=== PATIENT | male | born 1965 | race Caucasian/White ===

== ENCOUNTER 2018-12-15 14:30 | Emergency (ER) | payer OTHER, SELFPAY ==
[~2018-12-15] VITALS: Ht 182.9 cm; Wt 72.7 kg
[~2018-12-15 14:30] MED LIST: LORA-269 PO; LOSA1TAB41 PO; METO100T7 PO
[2018-12-15] MEDS ORDERED: normal saline 1000ML IV soln IVB ONE (14:55)
[2018-12-15] MEDS ORDERED: ondansetron/PF 4mg/2ml inj IV ONE (14:55)
[2018-12-15] MEDS ORDERED: LORazepam 2 mg/ml vial IV ONE (14:55)
[2018-12-15] MEDS ORDERED: pantoprazole 40 MG vial IV ONE (14:55)
[2018-12-15 15:08] LABS: BASOPHILS % (AUTO) 0.5 % (0-1); EOSINOPHILS # (AUTO) 0.1 X10'3 (0-0.9); HEMATOCRIT 42.6 % (42.0-52.0); HEMOGLOBIN 15.2 g/dl (14.0-17.9); LYMPHOCYTES # (AUTO) 1.2 X10'3 (1.1-4.8); MEAN CORPUSCULAR HEMOGLOBIN 35.3 PG (27.0-31.0); MEAN CORPUSCULAR HGB CONC 35.7 g/dL (33.0-36.5); MEAN CORPUSCULAR VOLUME 98.9 FL (78-98); MEAN PLATELET VOLUME 6.4 FL (7.4-10.4); MONOCYTES # (AUTO) 0.5 X10'3 (0-0.9); MONOCYTES % (AUTO) 7.3 % (2-12); NEUTROPHILS # (AUTO) 4.5 X10'3 (1.8-7.7); NEUTROPHILS % (AUTO) 72.2 % (42-75); PLATELET COUNT 205 X10'3 (140-440); RED CELL DISTRIBUTION WIDTH 12.9 % (11.5-14.5); WHITE BLOOD COUNT 6.2 X10'3 (4.5-11.0)
[2018-12-15 15:12] LABS: CLARITY,URINE CLEAR (Clear); COLOR,URINE YELLOW (Yellow); GLUCOSE, URINE NEGATIVE (Neg); KETONES,URINE NEGATIVE (Neg); LEUKOCYTE ESTERASE ,URINE NEGATIVE (Neg); NITRITES, URINE NEGATIVE (Neg); OCCULT BLOOD,URINE NEGATIVE (Neg); PH,URINE 6.5 (4.8-8.0); PROTEIN,URINE TRACE mg/dl (Neg); UA COLLECTION TYPE CLN CATCH MIDSTREAM; UROBILINOGEN,URINE 0.2 E.U/dL (0.2-1.0)
[2018-12-15 15:20] LABS: BACTERIA,URINE FEW /HPF (Neg); HYALINE CASTS 0-3 /LPF (NEGATIVE); RBC,URINE 0-2 /HPF (0-2); SQUAMOUS EPITHELIAL CELL,UR FEW /LPF (FEW); WBC,URINE 0-4 /HPF (0-4)
[2018-12-15 15:20] LABS: ALANINE AMINOTRANSFERASE 50 U/L (12-78); ALBUMIN 3.5 G/DL (3.4-5.0); ALBUMIN/GLOBULIN RATIO 0.9 (1.1-1.5); ALKALINE PHOSPHATASE 150 IU/L (46-116); ANION GAP 11 (8-16); ASPARTATE AMINO TRANSFERASE 34 U/L (10-37); BILIRUBIN,TOTAL 1.5 MG/DL (0.1-1.0); BLOOD UREA NITROGEN 12 MG/DL (7-18); BUN/CREATININE RATIO 11.2 (5.4-32.0); CALCIUM 8.8 MG/DL (8.5-10.1); CHLORIDE 96 MMOL/L (99-107); CREATININE 1.07 MG/DL (0.60-1.10); GLUCOSE 109 MG/DL (70-104); POTASSIUM 3.3 MMOL/L (3.5-5.1); SODIUM 130 MMOL/L (135-145); TOTAL CARBON DIOXIDE 22.9 MMOL/L (24-32); TOTAL PROTEIN 7.3 G/DL (6.4-8.2); eGFR 73 ML/MIN
[2018-12-15 15:26] VITALS: BP 186/120
[2018-12-15] MEDS ORDERED: thiamine inj. 100 MG, MVI, adult No.4 with vit. K 10 ML in dextrose 5% water 500ml 489 ML IV STA ×3 (15:46)
[2018-12-15] MEDS ORDERED: proCHLORperazine 10 MG/2 ml inj IV ONE (15:50)
[2018-12-15] MEDS ORDERED: SUCR1TAB34 PO (16:23)
[2018-12-15] MEDS ORDERED: PANT40TA4 PO (16:23)
[2018-12-15] MEDS ORDERED: ONDA8TAB6 PO (16:23)
== END 2018-12-15 18:12 | disposition home or self-care (01) ==
LOC: ER 14:31
DX: K64.4 Residual hemorrhoidal skin tags (principal); F10.10 Alcohol abuse, uncomplicated; R11.2 Nausea with vomiting, unspecified; I10 Essential (primary) hypertension; Z87.442 Personal history of urinary calculi; Z79.899 Other long term (current) drug therapy; Y90.9 Presence of alcohol in blood, level not specified
CPT/HCPCS: 36415; 80053; 81001; 85025; 85610; 96361; 96365; 96366; 96375; 99283; C9113; J0780; J2060; J2405; J3411; J7030; J7060

== ENCOUNTER 2019-04-29 14:57 | Emergency (ER) | payer OTHER ==
[~2019-04-29] VITALS: Ht 182.9 cm; Wt 81.8 kg
[~2019-04-29 14:57] MED LIST changes: +ONDA8TAB6 PO; +PANT40TA4 PO; +SUCR1TAB34 PO
[2019-04-29] MEDS ORDERED: ondansetron/PF 4mg/2ml inj IV ONE (15:20)
[2019-04-29] MEDS ORDERED: normal saline 1000ML IV soln IVB ONE ×2 (15:20→17:20)
[2019-04-29 15:38] LABS: EOSINOPHILS # (AUTO) 0.1 X10'3 (0-0.9); EOSINOPHILS % (AUTO) 1.2 % (0-6); LYMPHOCYTES # (AUTO) 1.4 X10'3 (1.1-4.8); MONOCYTES # (AUTO) 0.8 X10'3 (0-0.9)
[2019-04-29 15:40] LABS: BASOPHILS % (AUTO) 0.4 % (0-1); HEMATOCRIT 46.5 % (42.0-52.0); HEMOGLOBIN 16.2 g/dl (14.0-17.9); LYMPHOCYTES % (AUTO) 19.1 % (21-51); MEAN CORPUSCULAR HEMOGLOBIN 36.2 PG (27.0-31.0); MEAN CORPUSCULAR HGB CONC 34.8 g/dL (33.0-36.5); MEAN CORPUSCULAR VOLUME 103.9 FL (78-98); MEAN PLATELET VOLUME 6.1 FL (7.4-10.4); MONOCYTES % (AUTO) 10.9 % (2-12); NEUTROPHILS # (AUTO) 4.9 X10'3 (1.8-7.7); NEUTROPHILS % (AUTO) 68.4 % (42-75); PLATELET COUNT 202 X10'3 (140-440); RED BLOOD COUNT 4.48 X10'6 (4.70-6.10); RED CELL DISTRIBUTION WIDTH 14.3 % (11.5-14.5); WHITE BLOOD COUNT 7.2 X10'3 (4.5-11.0)
[2019-04-29 15:51] LABS: ALANINE AMINOTRANSFERASE 22 U/L (12-78); ALBUMIN 3.5 G/DL (3.4-5.0); ALBUMIN/GLOBULIN RATIO 0.9 (1.1-1.5); ALKALINE PHOSPHATASE 187 IU/L (46-116); ANION GAP 8 (8-16); ASPARTATE AMINO TRANSFERASE 20 U/L (10-37); BILIRUBIN,TOTAL 2.2 MG/DL (0.1-1.0); BLOOD UREA NITROGEN 4 MG/DL (7-18); BUN/CREATININE RATIO 3.9 (5.4-32.0); CHLORIDE 92 MMOL/L (99-107); CREATININE 1.02 MG/DL (0.60-1.10); GLUCOSE 100 MG/DL (70-104); LIPASE < 50 U/L (73-393); POTASSIUM 4.2 MMOL/L (3.5-5.1); SODIUM 128 MMOL/L (135-145); TOTAL CARBON DIOXIDE 28.5 MMOL/L (24-32); TOTAL PROTEIN 7.6 G/DL (6.4-8.2); eGFR 76 ML/MIN
[2019-04-29 16:02] LABS: PLATELET ESTIMATE NORMAL
[2019-04-29 16:08] LABS: CLARITY,URINE CLEAR (Clear); COLOR,URINE YELLOW (Yellow); GLUCOSE, URINE NEGATIVE (Neg); KETONES,URINE NEGATIVE (Neg); LEUKOCYTE ESTERASE ,URINE NEGATIVE (Neg); NITRITES, URINE NEGATIVE (Neg); OCCULT BLOOD,URINE NEGATIVE (Neg); PROTEIN,URINE TRACE mg/dl (Neg)
[2019-04-29 16:09] LABS: UA COLLECTION TYPE CLN CATCH MIDSTREAM
[2019-04-29 16:15] LABS: BACTERIA,URINE FEW /HPF (Neg); HYALINE CASTS 0-3 /LPF (NEGATIVE); MUCUS STRANDS FEW /LPF (Neg); RBC,URINE 0-2 /HPF (0-2); SQUAMOUS EPITHELIAL CELL,UR FEW /LPF (FEW); WBC CLUMPS,URINE FEW /HPF (NEGATIVE); WBC,URINE 0-4 /HPF (0-4)
[2019-04-29] MEDS: morphine 4 MG/ML inj SYRINge IV PRN ×2 (16:23→18:53)
--- NOTE | 2019-04-29 16:29 | NUR ---
Pt medicated as ordered for pain and nausea. IVF started. Pt transported to CT scan.
[2019-04-29] MEDS ORDERED: CefTRIAXone/D5W-Rocephin 1gm 50 ML IV ONE (17:20)
[2019-04-29] MEDS ORDERED: azithromycin 250mg tablet PO ONE (17:20)
[2019-04-29] MEDS ORDERED: morphine 4 MG/ML inj SYRINge IV ONE (17:20)
[2019-04-29] MEDS ORDERED: ALBU18HF2 INH (18:20)
[2019-04-29] MEDS ORDERED: AZIT250T83 PO (18:20)
[2019-04-29 19:20] VITALS: BP 164/110
== END 2019-04-29 19:28 | disposition home or self-care (01) ==
LOC: ER 14:58
DX: J18.9 Pneumonia, unspecified organism (principal); R10.814 Left lower quadrant abdominal tenderness; R11.2 Nausea with vomiting, unspecified; R00.0 Tachycardia, unspecified; I11.0 Hypertensive heart disease with heart failure; I50.9 Heart failure, unspecified; Z87.442 Personal history of urinary calculi; Z87.891 Personal history of nicotine dependence; Z79.2 Long term (current) use of antibiotics; Z79.899 Other long term (current) drug therapy
CPT/HCPCS: 36415; 71046; 74176; 80053; 81001; 83690; 84484; 85025; 96361; 96365; 96375; 96376; 99284; J0696; J2270; J2405; J7030

== ENCOUNTER 2019-09-03 09:58 | Inpatient (IN) | payer OTHER ==
[~2019-09-03] VITALS: Ht 182.9 cm; Wt 114.0 kg
[~2019-09-03 09:58] MED LIST changes: +ALBU18HF2 INH
[2019-09-03 10:45] LABS: BASOPHILS % (AUTO) 0.6 % (0-1); EOSINOPHILS % (AUTO) 0.6 % (0-6); HEMATOCRIT 42.7 % (42.0-52.0); HEMOGLOBIN 15.1 g/dl (14.0-17.9); LYMPHOCYTES # (AUTO) 1.4 X10'3 (1.1-4.8); LYMPHOCYTES % (AUTO) 16.6 % (21-51); MEAN CORPUSCULAR HEMOGLOBIN 38.9 PG (27.0-31.0); MEAN CORPUSCULAR HGB CONC 35.4 g/dL (33.0-36.5); MEAN CORPUSCULAR VOLUME 109.8 FL (78-98); MEAN PLATELET VOLUME 6.8 FL (7.4-10.4); MONOCYTES # (AUTO) 0.6 X10'3 (0-0.9); MONOCYTES % (AUTO) 7.5 % (2-12); NEUTROPHILS # (AUTO) 6.3 X10'3 (1.8-7.7); NEUTROPHILS % (AUTO) 74.7 % (42-75); PLATELET COUNT 203 X10'3 (140-440); RED BLOOD COUNT 3.89 X10'6 (4.70-6.10); RED CELL DISTRIBUTION WIDTH 15.1 % (11.5-14.5); WHITE BLOOD COUNT 8.5 X10'3 (4.5-11.0)
[2019-09-03] MEDS ORDERED: CefTRIAXone/D5W-Rocephin 1gm 50 ML IV ONE (10:50)
[2019-09-03] MEDS ORDERED: ipratropium 0.5 MG/2.5ML nebule IH ONE (10:50)
[2019-09-03] MEDS ORDERED: acetaminophen w/codeine (30MG) #3 tablet PO ONE (10:55)
[2019-09-03] MEDS ORDERED: iohexol 350MG/ML 100ml bottle IV ONE (11:02)
[2019-09-03 11:15] LABS: BILIRUBIN,TOTAL 3.3 MG/DL (0.1-1.0)
--- NOTE | 2019-09-03 11:15 | NUR ---
Pt out to CT
[2019-09-03 11:16] LABS: ALANINE AMINOTRANSFERASE 16 U/L (12-78); ALBUMIN 3.7 G/DL (3.4-5.0); ALBUMIN/GLOBULIN RATIO 0.8 (1.1-1.5); ALKALINE PHOSPHATASE 157 IU/L (46-116); ANION GAP 15 (8-16); ASPARTATE AMINO TRANSFERASE 20 U/L (10-37); BLOOD UREA NITROGEN 15 MG/DL (7-18); BUN/CREATININE RATIO 9.6 (5.4-32.0); CALCIUM 8.7 MG/DL (8.5-10.1); CHLORIDE 102 MMOL/L (99-107); CREATININE 1.57 MG/DL (0.60-1.10); GLUCOSE 124 MG/DL (70-104); POTASSIUM 3.3 MMOL/L (3.5-5.1); SODIUM 142 MMOL/L (135-145); TOTAL CARBON DIOXIDE 25.1 MMOL/L (24-32); TOTAL PROTEIN 8.1 G/DL (6.4-8.2); eGFR 46 ML/MIN
[2019-09-03] MEDS ORDERED: normal saline 1000ml 1,000 ML IV ONE (11:22)
[2019-09-03] MEDS ORDERED: normal saline 1000ML IV soln IVB ONE (11:25)
[2019-09-03] MEDS ORDERED: heparin 25,000 UNIT/250ml bag 250 ML IV SCH ×3 (11:39→12:36)
[2019-09-03] MEDS ORDERED: heparin 10,000 units/1 ML INJ IV ONE ×3 (11:40→12:25)
[2019-09-03] MEDS ORDERED: ipratropium 0.5 MG/2.5ML nebule ONE (11:44)
--- NOTE | 2019-09-03 12:23 | NUR ---
STOPPED BRONCHODILATOR PER DR CALDERON PT DID NOT NEED BRONCHODILATION
[2019-09-03] MEDS ORDERED: heparin 10,000 units/1 ML INJ IV PRN ×2 (12:25→12:40)
[2019-09-03] MEDS ORDERED: PANT-47 PO (12:29)
[2019-09-03] MEDS ORDERED: LOSA1TAB41 PO (12:29)
[2019-09-03] MEDS ORDERED: ALBU18HF2 PO (12:29)
[2019-09-03] MEDS ORDERED: SUCR1TAB PO (12:29)
[2019-09-03] MEDS ORDERED: METO-384 PO (12:29)
[2019-09-03] MEDS ORDERED: potassium Cl 20 mEq SR tablet PO PRN (12:40)
[2019-09-03] MEDS ORDERED: potassium CL 10mEq/100ml bag 100 ML IV PRN ×2 (12:40)
[2019-09-03] MEDS ORDERED: mag hydrox/Alum hydrox/simeth 30ml oral suspension PO PRN (12:40)
[2019-09-03] MEDS ORDERED: acetaminophen 325mg tablet PO PRN ×2 (12:40)
[2019-09-03] MEDS ORDERED: metoclopramide 5 mg/ml inj IV PRN (12:40)
[2019-09-03] MEDS ORDERED: magnesium hydroxide 30ml (MOM) UD suspension PO PRN (12:40)
[2019-09-03] MEDS ORDERED: magnesium 2GM in 50ml NS 50 ML IV PRN (12:40)
[2019-09-03] MEDS ORDERED: ondansetron/PF 4mg/2ml inj IV PRN (12:40)
[2019-09-03] MEDS ORDERED: magnesium 4gm in 100ml NS 100 ML IV PRN (12:40)
[2019-09-03] MEDS ORDERED: albuterol 2.5 MG/3 ML nebule NEB PRN (13:00)
[2019-09-03] MEDS: sucralfate 1 gm tablet PO SCH ×2 (14:00→19:51)
--- NOTE | 2019-09-03 14:35 | NUR ---
Patient in room [facility]. I have received report from Wero RN from ED and had the opportunity to ask questions and assume patient care. Pt was hypertensive when he arrived 173/120, RR18, O2 100% RA, T97.8 Charge nurse, Chely, notified since HTN was no treated at ED. Dr Church was also notified of the HTN and Dr advised to give Losartan & Microzide. Pt arrived with Heparin drip running at 2052 units per hr. Noted: Heparin bag was not scanned at the ED. NOC nurse aware of the heparin not scanned/noted. Pt's BP after meds (45min) 144/84.
[2019-09-03 15:26] VITALS: BP 173/120
[2019-09-03] MEDS ORDERED: HYDROchlorothiazide 12.5mg capsule PO ONE (16:35)
[2019-09-03] MEDS ORDERED: losartan 50mg tablet PO ONE (16:35)
[2019-09-03] MEDS: HYDROcodone/acetaminophen 5mg/325mg tablet PO PRN (16:52)
--- NOTE | 2019-09-03 18:30 | NUR ---
Problems reprioritized. Patient report given, questions answered & plan of care reviewed with Holly Kamara
--- NOTE | 2019-09-03 19:30 | NUR ---
@1845 Received report from Shantell LO. Will assume patient care. @1850 Patient currently heparin gtt running at 20.52 ml/hr. Received critical call from lab DVT PTT greater than 139. Heparin immediately stopped. And verified with lab that site was drawn in the correct on arm. Lab drawn in the correct arm. @1915 Dr. Trujillo notified of the critical results. No new orders. Continue with protocol.
[2019-09-03 20:00] VITALS: BP 152/89
[2019-09-03] MEDS: K and/or MAG REPLACEMENT MC SCH (20:00)
[2019-09-03] MEDS: potassium Cl 20 mEq SR tablet PO PRN (20:01)
--- NOTE | 2019-09-03 20:19 | NUR ---
Pharmacist notified and called to verified patients previous heparin rate. Patient heparin rate should be at 20ml/hr. Will continue with orders and adjust rate accordingly to protocol.
[2019-09-03] MEDS: heparin 25,000 UNIT/250ml bag 250 ML IV SCH (20:57)
[2019-09-03] MEDS: HYDROcodone/acetaminophen 10/325mg tab PO PRN (21:00)
[2019-09-03] MEDS ORDERED: temazepam 15mg capsule PO PRN (21:00)
--- NOTE | 2019-09-03 21:02 | NUR ---
@2049 HEPARIN RESTARTED PER PROTOCOL. DECREASE RATE 3UNIT/KG/HOUR. PREVIOUS RATE WAS AT 20ML/HR. RATE RESTARTED AT 17ML/HR. WILL RECHECK PTT IN 2HRS ACCORDING TO PROTOCOL.
--- NOTE | 2019-09-03 23:49 | NUR ---
PTT came back at 58 therapeutic. No change. Next PTT drawn is @0450.
[2019-09-04] VITALS (8 sets, daily range): BP systolic 140–182; BP diastolic 83–122
[2019-09-04] MEDS: sucralfate 1 gm tablet PO SCH ×4 (02:00→19:34)
[2019-09-04] MEDS ORDERED: morphine 2 MG/ML inj. syringe IV ONE (02:30)
[2019-09-04] MEDS: heparin 25,000 UNIT/250ml bag 250 ML IV SCH ×3 (04:13→21:34)
[2019-09-04] MEDS: HYDROcodone/acetaminophen 10/325mg tab PO PRN ×2 (04:13→19:35)
--- NOTE | 2019-09-04 05:00 | NUR ---
@0210 patient woke up from his sleep in panic and coughing, gasping for air and could not catch his breath. VS BP-161/117, HR-115, RR-38 98% RA, pain 5/[address] Trujillo notifed and arrived on floor. Order x1dose 2mg morphine IV. Within 10mins after morphine administer patient felt camler and breathing more slowly. BP-140/92, HR-103, RR-26, 97%RA, pain 5/10, 98.1 Temp. Will continue with care.
[2019-09-04 05:50] LABS: BASOPHILS % (AUTO) 0.4 % (0-1); EOSINOPHILS # (AUTO) 0.2 X10'3 (0-0.9); EOSINOPHILS % (AUTO) 3.2 % (0-6); HEMATOCRIT 35.9 % (42.0-52.0); HEMOGLOBIN 12.6 g/dl (14.0-17.9); LYMPHOCYTES # (AUTO) 0.8 X10'3 (1.1-4.8); LYMPHOCYTES % (AUTO) 11.6 % (21-51); MEAN CORPUSCULAR HEMOGLOBIN 38.5 PG (27.0-31.0); MEAN CORPUSCULAR HGB CONC 35.2 g/dL (33.0-36.5); MEAN CORPUSCULAR VOLUME 109.4 FL (78-98); MEAN PLATELET VOLUME 7.2 FL (7.4-10.4); MONOCYTES # (AUTO) 0.5 X10'3 (0-0.9); NEUTROPHILS # (AUTO) 5.4 X10'3 (1.8-7.7); NEUTROPHILS % (AUTO) 77.8 % (42-75); PLATELET COUNT 170 X10'3 (140-440); RED BLOOD COUNT 3.28 X10'6 (4.70-6.10); RED CELL DISTRIBUTION WIDTH 14.9 % (11.5-14.5)
[2019-09-04 06:08] LABS: ALANINE AMINOTRANSFERASE 13 U/L (12-78); ALBUMIN 2.8 G/DL (3.4-5.0); ALBUMIN/GLOBULIN RATIO 0.8 (1.1-1.5); ALKALINE PHOSPHATASE 118 IU/L (46-116); ANION GAP 14 (8-16); ASPARTATE AMINO TRANSFERASE 15 U/L (10-37); BILIRUBIN,TOTAL 2.7 MG/DL (0.1-1.0); BLOOD UREA NITROGEN 17 MG/DL (7-18); BUN/CREATININE RATIO 12.8 (5.4-32.0); CALCIUM 7.9 MG/DL (8.5-10.1); CHLORIDE 103 MMOL/L (99-107); CHOL/HDL RATIO 3.6 (0.00-4.99); CHOLESTEROL 128 MG/DL (0-200); CREATININE 1.33 MG/DL (0.60-1.10); GLUCOSE 133 MG/DL (70-104); HDL CHOLESTEROL 36 MG/DL (35-60); LDL CHOLESTEROL 82 MG/DL (50-100); MAGNESIUM 1.2 MG/DL (1.5-2.4); POTASSIUM 3.4 MMOL/L (3.5-5.1); SODIUM 139 MMOL/L (135-145); TOTAL CARBON DIOXIDE 21.8 MMOL/L (24-32); TOTAL PROTEIN 6.5 G/DL (6.4-8.2); TRIGLYCERIDES 113 MG/DL (20-135); eGFR 56 ML/MIN
[2019-09-04] MEDS: losartan 50mg tablet PO SCH (07:17)
[2019-09-04] MEDS: HYDROchlorothiazide 12.5mg capsule PO SCH (07:18)
[2019-09-04] MEDS: pantoprazole 40mg Tablet.DR PO SCH (07:18)
[2019-09-04] MEDS: metoprolol succinate 25mg (24-HOUR) SR. Tablet PO SCH (07:19)
[2019-09-04] MEDS: K and/or MAG REPLACEMENT MC SCH ×2 (08:00→21:35)
[2019-09-04] MEDS: potassium Cl 20 mEq SR tablet PO PRN ×2 (10:44→19:35)
[2019-09-04] MEDS: magnesium Cl slow-release 64mg tablet PO PRN ×2 (10:45→21:38)
[2019-09-04] MEDS: predniSONE 20 mg tablet PO SCH (10:45)
[2019-09-04] MEDS: HYDROcodone/acetaminophen 5mg/325mg tablet PO PRN (14:24)
--- NOTE | 2019-09-04 18:00 | NUR ---
Problems reprioritized. Patient report given, questions answered & plan of care reviewed with Holly LO.
[2019-09-05] VITALS: BP 137/88
[2019-09-05] MEDS: sucralfate 1 gm tablet PO SCH ×3 (02:00→13:31)
[2019-09-05 06:40] LABS: BASOPHILS % (AUTO) 0.4 % (0-1); EOSINOPHILS # (AUTO) 0.1 X10'3 (0-0.9); HEMATOCRIT 36.4 % (42.0-52.0); LYMPHOCYTES # (AUTO) 1.5 X10'3 (1.1-4.8); LYMPHOCYTES % (AUTO) 20.7 % (21-51); MEAN CORPUSCULAR HEMOGLOBIN 38.9 PG (27.0-31.0); MEAN CORPUSCULAR HGB CONC 35.7 g/dL (33.0-36.5); MEAN CORPUSCULAR VOLUME 108.8 FL (78-98); MEAN PLATELET VOLUME 6.3 FL (7.4-10.4); MONOCYTES # (AUTO) 0.5 X10'3 (0-0.9); MONOCYTES % (AUTO) 6.5 % (2-12); NEUTROPHILS # (AUTO) 5.3 X10'3 (1.8-7.7); NEUTROPHILS % (AUTO) 71.4 % (42-75); PLATELET COUNT 208 X10'3 (140-440); RED BLOOD COUNT 3.35 X10'6 (4.70-6.10); RED CELL DISTRIBUTION WIDTH 14.3 % (11.5-14.5); WHITE BLOOD COUNT 7.5 X10'3 (4.5-11.0)
--- NOTE | 2019-09-05 06:48 | NUR ---
Patient in room [facility]. I have received report from Holly LO and had the opportunity to ask questions and assume patient care.
[2019-09-05 07:00] VITALS: BP 149/98
[2019-09-05] MEDS: heparin 25,000 UNIT/250ml bag 250 ML IV SCH (07:03)
[2019-09-05 07:14] LABS: ALANINE AMINOTRANSFERASE 14 U/L (12-78); ALBUMIN 2.9 G/DL (3.4-5.0); ALBUMIN/GLOBULIN RATIO 0.7 (1.1-1.5); ALKALINE PHOSPHATASE 112 IU/L (46-116); ANION GAP 10 (8-16); ASPARTATE AMINO TRANSFERASE 13 U/L (10-37); BILIRUBIN,TOTAL 1.6 MG/DL (0.1-1.0); BLOOD UREA NITROGEN 16 MG/DL (7-18); BUN/CREATININE RATIO 12.3 (5.4-32.0); CALCIUM 8.8 MG/DL (8.5-10.1); CHLORIDE 102 MMOL/L (99-107); GLUCOSE 99 MG/DL (70-104); MAGNESIUM 1.6 MG/DL (1.5-2.4); POTASSIUM 3.8 MMOL/L (3.5-5.1); SODIUM 136 MMOL/L (135-145); eGFR 58 ML/MIN
[2019-09-05] MEDS: K and/or MAG REPLACEMENT MC SCH (08:00)
[2019-09-05] MEDS: HYDROcodone/acetaminophen 10/325mg tab PO PRN ×2 (08:36→13:32)
[2019-09-05] MEDS: pantoprazole 40mg Tablet.DR PO SCH (08:37)
[2019-09-05] MEDS: predniSONE 20 mg tablet PO SCH (08:37)
[2019-09-05] MEDS: metoprolol succinate 25mg (24-HOUR) SR. Tablet PO SCH (08:37)
[2019-09-05] MEDS: HYDROchlorothiazide 12.5mg capsule PO SCH (08:37)
[2019-09-05] MEDS: losartan 50mg tablet PO SCH (08:38)
[2019-09-05 11:00] VITALS: BP 175/116
[2019-09-05 12:30] VITALS: BP 170/104
[2019-09-05] MEDS ORDERED: apixaban 5mg tablet PO ONE (12:30)
--- NOTE | 2019-09-05 12:30 | NUR ---
Patients blood pressure was taken manually by Dr Madden at bedside he will make adjustments to patients Blood pressure medications
[2019-09-05] MEDS ORDERED: PRED20TA PO (12:32)
[2019-09-05] MEDS ORDERED: AMLO5TAB4 PO (12:32)
[2019-09-05] MEDS ORDERED: HYDR-4353 PO (12:32)
[2019-09-05] MEDS ORDERED: APIX5TAB3 PO ×2 (12:32)
--- NOTE | 2019-09-05 14:34 | NUR ---
Patient discharged home with . All belongings taken from room. IV removed. Narcotic prescription given to patient, other new medications e-scripted to preferred pharmacy. Work excuse form given to patient. Discharge instructions given and reviewed with patient and , all questions answered.
[2019-09-07 05:12] LABS: ANTITHROMBIN ACTIVITY 112 % (75-135); ANTITHROMBIN ANTIGEN 81 % (72-124)
[2019-09-07 07:09] LABS: PROTEIN S, FREE 207 % (57-157); PROTEIN S, TOTAL 130 % (60-150)
== END 2019-09-05 14:00 | disposition home or self-care (01) | DRG 299 ==
LOC: ER 09:58 → ED HOLD 12:49 → SUR 3N 14:54
PROVIDERS: ADMIT Family Medicine; ATTEND Family Medicine
DX: I82.492 Acute embolism and thrombosis of other specified deep vein of left lower extremity (principal); I26.99 Other pulmonary embolism without acute cor pulmonale; N17.9 Acute kidney failure, unspecified; I82.402 Acute embolism and thrombosis of unspecified deep veins of left lower extremity; M10.9 Gout, unspecified; E87.6 Hypokalemia; N18.9 Chronic kidney disease, unspecified; I12.9 Hypertensive chronic kidney disease with stage 1 through stage 4 chronic kidney disease, or unspecified chronic kidney disease; M25.572 Pain in left ankle and joints of left foot; J44.9 Chronic obstructive pulmonary disease, unspecified; E83.42 Hypomagnesemia; D64.9 Anemia, unspecified; Z87.11 Personal history of peptic ulcer disease; Z87.442 Personal history of urinary calculi; Z87.891 Personal history of nicotine dependence; Z79.899 Other long term (current) drug therapy; Z87.01 Personal history of pneumonia (recurrent); Z87.19 Personal history of other diseases of the digestive system
CPT/HCPCS: 36415; 71046; 71275; 73600; 73630; 80053; 80061; 81479; 83605; 83735; 83891; 83894; 83898; 84550; 85025; 85240; 85300; 85301; 85303; 85305; 85306; 85730; 87040; 87081; 93005; 93306; 93971; 94760; 96365; 96375; 99285; G0378; J0696; J1644; J2270; J7030; J7512; Q9967

== ENCOUNTER 2019-09-15 08:34 | Emergency (ER) | payer OTHER ==
[~2019-09-15] VITALS: Ht 182.9 cm; Wt 90.2 kg
[~2019-09-15 08:34] MED LIST changes: -ALBU18HF2 INH; +ALBU18HF2 PO; +AMLO5TAB4 PO; +APIX5TAB3 PO; +HYDR-4353 PO; -LORA-269 PO; +METO-384 PO; -METO100T7 PO; -ONDA8TAB6 PO; +PANT-47 PO; -PANT40TA4 PO; +PRED20TA PO; +SUCR1TAB PO; -SUCR1TAB34 PO
[2019-09-15] MEDS ORDERED: CefTRIAXone 2gm/D5W 50ml 50 ML IV ONE (09:15)
[2019-09-15] MEDS ORDERED: normal saline 1000ML IV soln IV ONE (09:15)
[2019-09-15 09:52] LABS: BASOPHILS # (AUTO) 0.1 X10'3 (0-0.2); BASOPHILS % (AUTO) 1.1 % (0-1); EOSINOPHILS # (AUTO) 0.2 X10'3 (0-0.9); EOSINOPHILS % (AUTO) 1.9 % (0-6); HEMATOCRIT 36.8 % (42.0-52.0); HEMOGLOBIN 13.2 g/dl (14.0-17.9); LYMPHOCYTES # (AUTO) 0.9 X10'3 (1.1-4.8); MEAN CORPUSCULAR HEMOGLOBIN 38.3 PG (27.0-31.0); MEAN CORPUSCULAR HGB CONC 35.8 g/dL (33.0-36.5); MONOCYTES # (AUTO) 0.6 X10'3 (0-0.9); MONOCYTES % (AUTO) 6.5 % (2-12); NEUTROPHILS # (AUTO) 7.6 X10'3 (1.8-7.7); NEUTROPHILS % (AUTO) 80.5 % (42-75); PLATELET COUNT 452 X10'3 (140-440); RED BLOOD COUNT 3.44 X10'6 (4.70-6.10); WHITE BLOOD COUNT 9.5 X10'3 (4.5-11.0)
[2019-09-15 10:06] VITALS: BP 115/76
[2019-09-15 10:08] LABS: ALANINE AMINOTRANSFERASE 27 U/L (12-78); ALBUMIN 3.1 G/DL (3.4-5.0); ALBUMIN/GLOBULIN RATIO 0.7 (1.1-1.5); ALKALINE PHOSPHATASE 188 IU/L (46-116); ANION GAP 4 (8-16); ASPARTATE AMINO TRANSFERASE 27 U/L (10-37); BILIRUBIN,TOTAL 1.1 MG/DL (0.1-1.0); BLOOD UREA NITROGEN 18 MG/DL (7-18); BUN/CREATININE RATIO 11.9 (5.4-32.0); CHLORIDE 93 MMOL/L (99-107); CREATININE 1.51 MG/DL (0.60-1.10); GLUCOSE 92 MG/DL (70-104); POTASSIUM 4.1 MMOL/L (3.5-5.1); SODIUM 129 MMOL/L (135-145); TOTAL CARBON DIOXIDE 32.1 MMOL/L (24-32); TOTAL PROTEIN 7.4 G/DL (6.4-8.2); eGFR 49 ML/MIN
[2019-09-15] MEDS ORDERED: CEPH250T PO (10:21)
== END 2019-09-15 11:54 | disposition home or self-care (01) ==
LOC: ER 08:34
DX: L03.115 Cellulitis of right lower limb (principal); E86.0 Dehydration; E87.1 Hypo-osmolality and hyponatremia; R06.02 Shortness of breath; Z87.01 Personal history of pneumonia (recurrent); N28.9 Disorder of kidney and ureter, unspecified; I10 Essential (primary) hypertension; Z87.442 Personal history of urinary calculi; Z86.711 Personal history of pulmonary embolism; M25.572 Pain in left ankle and joints of left foot
CPT/HCPCS: 36415; 80053; 83605; 84145; 85025; 87040; 93971; 96365; 99284; J0696; J7030

== ENCOUNTER 2021-09-02 17:22 | Emergency (ER) | payer BC, OTHER ==
[~2021-09-02] VITALS: Ht 182.9 cm; Wt 90.9 kg
[2021-09-02 18:26] VITALS: BP 126/93
[2021-09-02] MEDS ORDERED: normal saline 1000ML IV soln IVB ONE (18:40)
[2021-09-02 19:22] LABS: BASOPHILS % (AUTO) 0.6 % (0-1); EOSINOPHILS # (AUTO) 0.1 X10'3 (0-0.9); EOSINOPHILS % (AUTO) 0.9 % (0-6); HEMATOCRIT 48.7 % (42.0-52.0); HEMOGLOBIN 16.7 g/dl (14.0-17.9); LYMPHOCYTES # (AUTO) 1.7 X10'3 (1.1-4.8); LYMPHOCYTES % (AUTO) 23.1 % (21-51); MEAN CORPUSCULAR HEMOGLOBIN 33.5 PG (27.0-31.0); MEAN CORPUSCULAR HGB CONC 34.4 g/dL (33.0-36.5); MEAN CORPUSCULAR VOLUME 97.5 FL (78-98); MEAN PLATELET VOLUME 7.5 FL (7.4-10.4); MONOCYTES # (AUTO) 0.6 X10'3 (0-0.9); MONOCYTES % (AUTO) 8.5 % (2-12); NEUTROPHILS % (AUTO) 66.9 % (42-75); PLATELET COUNT 202 X10'3 (140-440); RED BLOOD COUNT 4.99 X10'6 (4.70-6.10); RED CELL DISTRIBUTION WIDTH 13.4 % (11.5-14.5); WHITE BLOOD COUNT 7.4 X10'3 (4.5-11.0)
[2021-09-02 19:34] LABS: ALANINE AMINOTRANSFERASE 20 U/L (12-78); ALBUMIN 4.2 G/DL (3.4-5.0); ALBUMIN/GLOBULIN RATIO 1.1 (1.1-1.5); ALKALINE PHOSPHATASE 193 IU/L (46-116); ANION GAP 16 (8-16); ASPARTATE AMINO TRANSFERASE 30 U/L (10-37); BILIRUBIN,TOTAL 1.1 MG/DL (0.1-1.0); BLOOD UREA NITROGEN 12 MG/DL (7-18); BUN/CREATININE RATIO 8.5 (5.4-32.0); CALCIUM 9.2 MG/DL (8.5-10.1); CHLORIDE 91 MMOL/L (99-107); CREATININE 1.42 MG/DL (0.60-1.10); GLUCOSE 109 MG/DL (70-104); POTASSIUM 3.7 MMOL/L (3.5-5.1); SODIUM 126 MMOL/L (135-145); TOTAL CARBON DIOXIDE 19.4 MMOL/L (24-32); TOTAL PROTEIN 7.9 G/DL (6.4-8.2); eGFR 52 ML/MIN
[2021-09-02] MEDS ORDERED: folic acid 1mg tablet PO ONE (20:50)
[2021-09-02] MEDS ORDERED: thiamine 100mg/ml 2ml inj. IV ONE (20:50)
[2021-09-02] MEDS ORDERED: dexamethasone sod phosphate 10mg/ml inj IV STA (20:53)
[2021-09-02] MEDS ORDERED: NIRM1TAB PO (21:14)
== END 2021-09-02 21:48 | disposition home or self-care (01) ==
LOC: ER 17:25
DX: U07.1 COVID-19 (principal); G62.9 Polyneuropathy, unspecified; E86.0 Dehydration; R06.02 Shortness of breath; R20.0 Anesthesia of skin; R53.1 Weakness; R53.83 Other fatigue; I10 Essential (primary) hypertension; K21.9 Gastro-esophageal reflux disease without esophagitis; Z87.01 Personal history of pneumonia (recurrent); Z86.711 Personal history of pulmonary embolism; Z87.442 Personal history of urinary calculi; Z72.89 Other problems related to lifestyle; Z79.899 Other long term (current) drug therapy
CPT/HCPCS: 36415; 71045; 80053; 83605; 85025; 87635; 93005; 96374; 96375; 99285; C9803; J1100; J3411; J7030

== ENCOUNTER 2022-02-09 17:00 | Emergency (ER) | payer BC ==
[~2022-02-09] VITALS: Ht 182.9 cm; Wt 88.0 kg
[~2022-02-09 17:00] MED LIST changes: +NIRM1TAB PO
[2022-02-09 18:11] VITALS: BP 134/85
[2022-02-10] MEDS ORDERED: CEPH-585 PO (10:18)
== END 2022-02-10 01:53 | disposition left against medical advice (07) ==
LOC: ER 17:01
DX: S99.929A Unspecified injury of unspecified foot, initial encounter (principal); Z53.21 Procedure and treatment not carried out due to patient leaving prior to being seen by health care provider; X58.XXXA Exposure to other specified factors, initial encounter; Y93.89 Activity, other specified; Y92.89 Other specified places as the place of occurrence of the external cause; Y99.8 Other external cause status
CPT/HCPCS: 73630

== ENCOUNTER 2022-02-10 08:11 | Emergency (ER) | payer BC ==
[~2022-02-10] VITALS: Ht 182.9 cm; Wt 91.1 kg
[2022-02-10 08:51] VITALS: BP 145/91
[2022-02-10] MEDS ORDERED: CEPH-585 PO (10:18)
[2022-02-10] MEDS ORDERED: TETanus/Pertussis (Acell)/Diphther VAC/PF (Tdap-Adult) 0.5ml syringe IMVAC ONE (10:25)
== END 2022-02-10 11:19 | disposition home or self-care (01) ==
LOC: ER 08:11
DX: S91.115A Laceration without foreign body of left lesser toe(s) without damage to nail, initial encounter (principal); Z23 Encounter for immunization; I10 Essential (primary) hypertension; K21.9 Gastro-esophageal reflux disease without esophagitis; Z87.442 Personal history of urinary calculi; Z86.711 Personal history of pulmonary embolism; Z72.89 Other problems related to lifestyle; Z79.01 Long term (current) use of anticoagulants; Z79.899 Other long term (current) drug therapy; W18.39XA Other fall on same level, initial encounter; Y93.89 Activity, other specified; Y92.89 Other specified places as the place of occurrence of the external cause; Y99.8 Other external cause status
CPT/HCPCS: 90471; 90715; 99283; L3260

== ENCOUNTER 2024-03-13 21:24 | Inpatient (IN) | payer MEDICARE, MEDICAID ==
[~2024-03-13] VITALS: Ht 182.9 cm; Wt 101.0 kg
[~2024-03-13 21:24] MED LIST changes: +ATOR20TA66 PO; +FURO-150 PO; -NIRM1TAB PO; -PRED20TA PO; +THIA50TA10 PO
[2024-03-13 22:00] LABS: EOSINOPHILS # (AUTO) 0.1 X10'3 (0-0.9); MEAN PLATELET VOLUME 6.8 FL (7.4-10.4); RED CELL DISTRIBUTION WIDTH 14.3 % (11.5-14.5); WHITE BLOOD COUNT 8.8 X10'3 (4.5-11.0)
[2024-03-13 22:01] LABS: BASOPHILS % (AUTO) 0.4 % (0-1); EOSINOPHILS % (AUTO) 0.7 % (0-6); HEMATOCRIT 40.5 % (42.0-52.0); HEMOGLOBIN 13.7 g/dl (14.0-17.9); LYMPHOCYTES # (AUTO) 1.9 X10'3 (1.1-4.8); LYMPHOCYTES % (AUTO) 21.6 % (21-51); MEAN CORPUSCULAR HEMOGLOBIN 30.9 PG (27.0-31.0); MEAN CORPUSCULAR HGB CONC 33.9 g/dL (33.0-36.5); MEAN CORPUSCULAR VOLUME 91.2 FL (78-98); MONOCYTES # (AUTO) 0.7 X10'3 (0-0.9); NEUTROPHILS # (AUTO) 6.1 X10'3 (1.8-7.7); NEUTROPHILS % (AUTO) 69.3 % (42-75); PLATELET COUNT 197 X10'3 (140-440); RED BLOOD COUNT 4.45 X10'6 (4.70-6.10)
[2024-03-13 22:15] LABS: ALANINE AMINOTRANSFERASE 30 U/L (12-78); ALBUMIN/GLOBULIN RATIO 1.1 (1.1-1.5); ALKALINE PHOSPHATASE 144 IU/L (46-116); ANION GAP 12 (8-16); ASPARTATE AMINO TRANSFERASE 27 U/L (10-37); BILIRUBIN,TOTAL 1.1 MG/DL (0.1-1.0); BLOOD UREA NITROGEN 10 MG/DL (7-18); BUN/CREATININE RATIO 9.3 (10.0-20.0); CALCIUM 8.7 MG/DL (8.5-10.1); CHLORIDE 96 MMOL/L (99-107); CREATININE 1.08 MG/DL (0.60-1.10); GLUCOSE 115 MG/DL (70-104); POTASSIUM 3.7 MMOL/L (3.5-5.1); SODIUM 130 MMOL/L (135-145); TOTAL CARBON DIOXIDE 21.6 MMOL/L (24-32); TOTAL PROTEIN 7.8 G/DL (6.4-8.2); eCRCL 82 ML/MIN; eGFR 70 ML/MIN
[2024-03-13 22:22] LABS: LIPASE 166 U/L (16-77); PRO BRAIN NATRIURETIC PEPTIDE 36 PG/ML (0-125)
[2024-03-13] MEDS: ondansetron 4mg rapidly disintigrating tab PO ONE (22:49)
[2024-03-13] MEDS: mag hydrox/Alum hydrox/simeth 30ml oral suspension PO ONE (22:52)
[2024-03-13] MEDS: LIDOcaine 2% Viscous 15ml cup MM ONE (22:52)
[2024-03-13] MEDS: famotidine 20mg tablet PO ONE (22:53)
[2024-03-13] MEDS: morphine 4 MG/ML inj SYRINge IV ONE (23:20)
[2024-03-13] MEDS: HYDROcodone/acetaminophen 10/325mg tab PO ONE (23:50)
[2024-03-14] VITALS (8 sets, daily range): BP systolic 157–217; BP diastolic 81–130; PULSE 92–116; RESP 14–19; TEMP 97.8–98.7; O2SAT 97–100
[2024-03-14] MEDS ORDERED: HYDR-3972 PO (00:07)
[2024-03-14] MEDS ORDERED: ONDA-245 PO (00:07)
[2024-03-14] MEDS: fentaNYL/PF 50MCG/1 ML 2ML syringe IV ONE (00:15)
[2024-03-14] MEDS: morphine 4 MG/ML inj SYRINge IV ONE (00:53)
[2024-03-14] MEDS: normal saline 1000ML IV soln IVB ONE (00:58)
[2024-03-14] MEDS: HYDROmorphone 1 mg/ml syringe IV ONE ×2 (01:42→03:50)
[2024-03-14] MEDS ORDERED: magnesium hydroxide 30ml (MOM) UD suspension PO PRN (01:55)
[2024-03-14] MEDS ORDERED: mag hydrox/Alum hydrox/simeth 30ml oral suspension PO PRN (01:55)
[2024-03-14] MEDS ORDERED: magnesium sulf-water 2g/50mL 50 ML IV PRN (01:55)
[2024-03-14] MEDS ORDERED: magnesium sulf-water 4G/100mL 100 ML IV PRN (01:55)
[2024-03-14] MEDS ORDERED: acetaminophen 325mg tablet PO PRN (01:55)
[2024-03-14] MEDS: normal saline 1000ml 1,000 ML IV SCH (01:55)
[2024-03-14] MEDS ORDERED: magnesium Cl slow-release 64mg tablet PO PRN (01:55)
[2024-03-14] MEDS ORDERED: potassium Cl 40MEQ/1/2NS 520ml 520 ML IV PRN (01:55)
[2024-03-14] MEDS ORDERED: potassium Cl 20 mEq SR tablet PO PRN (01:55)
[2024-03-14] MEDS: HYDROcodone/acetaminophen 10/325mg tab PO PRN (04:23)
[2024-03-14] MEDS: hydrALAZINE 20mg/ml inj. IV PRN (04:25)
[2024-03-14 05:48] LABS: BILIRUBIN,URINE NEGATIVE (Neg); CLARITY,URINE CLEAR (Clear); COLOR,URINE YELLOW (Yellow); GLUCOSE, URINE NEGATIVE (Neg); KETONES,URINE NEGATIVE (Neg); LEUKOCYTE ESTERASE ,URINE NEGATIVE (Neg); NITRITES, URINE NEGATIVE (Neg); OCCULT BLOOD,URINE NEGATIVE (Neg); PH,URINE 5.5 (4.8-8.0); PROTEIN,URINE 100 mg/dl (Neg); UROBILINOGEN,URINE 0.2 E.U/dL (0.2-1.0)
[2024-03-14 06:01] LABS: UA COLLECTION TYPE NON-SPECIFIED
[2024-03-14 06:02] LABS: BACTERIA,URINE NONE SEEN /HPF (Neg); HYALINE CASTS 0-3 /LPF (NEGATIVE); MUCUS STRANDS FEW /LPF (Neg); RBC,URINE 0-2 /HPF (0-2); SQUAMOUS EPITHELIAL CELL,UR NONE SEEN /LPF (FEW); WBC,URINE 0-4 /HPF (0-4)
[2024-03-14] MEDS ORDERED: FOLI1TAB27 PO (06:49)
[2024-03-14] MEDS ORDERED: TRAZ-251 PO (06:49)
[2024-03-14] MEDS ORDERED: SACU1TAB7 PO (06:49)
[2024-03-14] MEDS ORDERED: ALLO100T PO (06:49)
[2024-03-14] MEDS ORDERED: METO-477 PO (06:49)
[2024-03-14] MEDS: K and/or MAG REPLACEMENT MC SCH (07:42)
[2024-03-14] MEDS: amLODIPine 5mg tablet PO SCH (08:11)
[2024-03-14] MEDS: metoprolol succinate 25mg (24-HOUR) SR. Tablet PO SCH (08:11)
[2024-03-14] MEDS: pantoprazole 40mg Tablet.DR PO SCH ×2 (08:11→19:20)
[2024-03-14] MEDS: docusate sod 100mg capsule PO SCH (08:12)
[2024-03-14] MEDS: sucralfate 1 gm tablet PO SCH (08:12)
[2024-03-14] MEDS: apixaban 5mg tablet PO SCH (08:12)
[2024-03-14] MEDS: thiamine 100mg tablet PO SCH (08:12)
[2024-03-14] MEDS: morphine 2 MG/ML inj. syringe IV PRN (08:13)
[2024-03-14] MEDS: normal saline 1000ml 1,000 ML IV ONE (09:39)
[2024-03-14 09:47] LABS: BASOPHILS % (AUTO) 0.2 % (0-1); EOSINOPHILS # (AUTO) 0.1 X10'3 (0-0.9); EOSINOPHILS % (AUTO) 0.7 % (0-6); HEMATOCRIT 37.8 % (42.0-52.0); HEMOGLOBIN 12.7 g/dl (14.0-17.9); LYMPHOCYTES # (AUTO) 1.2 X10'3 (1.1-4.8); LYMPHOCYTES % (AUTO) 15.2 % (21-51); MEAN CORPUSCULAR HEMOGLOBIN 30.8 PG (27.0-31.0); MEAN CORPUSCULAR HGB CONC 33.5 g/dL (33.0-36.5); MEAN CORPUSCULAR VOLUME 91.9 FL (78-98); MEAN PLATELET VOLUME 7.2 FL (7.4-10.4); MONOCYTES # (AUTO) 0.9 X10'3 (0-0.9); MONOCYTES % (AUTO) 11.5 % (2-12); NEUTROPHILS # (AUTO) 5.7 X10'3 (1.8-7.7); NEUTROPHILS % (AUTO) 72.4 % (42-75); PLATELET COUNT 157 X10'3 (140-440); RED BLOOD COUNT 4.11 X10'6 (4.70-6.10); RED CELL DISTRIBUTION WIDTH 14.2 % (11.5-14.5); WHITE BLOOD COUNT 7.9 X10'3 (4.5-11.0)
[2024-03-14 09:58] LABS: ALANINE AMINOTRANSFERASE 23 U/L (12-78); ALBUMIN 3.6 G/DL (3.4-5.0); ALBUMIN/GLOBULIN RATIO 1.1 (1.1-1.5); ALKALINE PHOSPHATASE 136 IU/L (46-116); ANION GAP 12 (8-16); ASPARTATE AMINO TRANSFERASE 13 U/L (10-37); BILIRUBIN,TOTAL 1.4 MG/DL (0.1-1.0); BLOOD UREA NITROGEN 9 MG/DL (7-18); BUN/CREATININE RATIO 8.7 (10.0-20.0); CALCIUM 8.7 MG/DL (8.5-10.1); CHLORIDE 100 MMOL/L (99-107); CREATININE 1.03 MG/DL (0.60-1.10); GLUCOSE 105 MG/DL (70-104); SODIUM 133 MMOL/L (135-145); eCRCL 86 ML/MIN; eGFR 74 ML/MIN
[2024-03-14] MEDS: ondansetron/PF 4mg/2ml inj IV PRN (13:10)
[2024-03-14] MEDS: nicotine 14mg patch - 24hr TD SCH (13:11)
[2024-03-14] MEDS: sacubitril/valsartan 24mg-26mg tablet PO ONE (13:26)
[2024-03-14] MEDS ORDERED: dextrose 50%-water 50ml dispensing syringe IV PRN (15:50)
[2024-03-14] MEDS ORDERED: haloperidol lactate 5mg/ml inj IM PRN (15:50)
[2024-03-14] MEDS ORDERED: haloperidol 5mg tablet PO PRN (15:50)
[2024-03-14] MEDS ORDERED: LORazepam 1 MG tablet PO PRN (16:35)
[2024-03-14] MEDS: folic acid 1mg/0.2ml inj IV SCH (16:46)
[2024-03-14] MEDS: LORazepam 2 mg/ml vial IV PRN ×2 (16:47→23:30)
[2024-03-14] MEDS: sacubitril/valsartan 49mg-51mg tablet PO SCH (19:19)
[2024-03-14] MEDS: LORazepam 1 MG tablet PO PRN (19:19)
[2024-03-14] MEDS: thiamine 100mg/ml 2ml inj. IV SCH (19:22)
[2024-03-14] MEDS: traZODone 50mg tablet PO SCH (19:22)
[2024-03-14] MEDS ORDERED: enoxaparin 40mg/0.4ml syringe SQ SCH (20:00)
[2024-03-15 02:00] VITALS: BP 144/84; PULSE 109; RESP 15; TEMP 98; O2SAT 99
[2024-03-15 05:00] VITALS: BP 157/91; PULSE 75; RESP 19; TEMP 97.7; O2SAT 95
[2024-03-15 06:39] LABS: BASOPHILS # (AUTO) 0.1 X10'3 (0-0.2); BASOPHILS % (AUTO) 0.5 % (0-1); EOSINOPHILS # (AUTO) 0.1 X10'3 (0-0.9); EOSINOPHILS % (AUTO) 1.1 % (0-6); HEMATOCRIT 39.6 % (42.0-52.0); HEMOGLOBIN 13.1 g/dl (14.0-17.9); LYMPHOCYTES # (AUTO) 1.6 X10'3 (1.1-4.8); LYMPHOCYTES % (AUTO) 14.2 % (21-51); MEAN CORPUSCULAR HEMOGLOBIN 30.1 PG (27.0-31.0); MEAN CORPUSCULAR HGB CONC 33.1 g/dL (33.0-36.5); MEAN CORPUSCULAR VOLUME 90.9 FL (78-98); MEAN PLATELET VOLUME 7.4 FL (7.4-10.4); MONOCYTES # (AUTO) 0.8 X10'3 (0-0.9); MONOCYTES % (AUTO) 7.1 % (2-12); NEUTROPHILS # (AUTO) 8.9 X10'3 (1.8-7.7); NEUTROPHILS % (AUTO) 77.1 % (42-75); PLATELET COUNT 190 X10'3 (140-440); RED BLOOD COUNT 4.36 X10'6 (4.70-6.10); RED CELL DISTRIBUTION WIDTH 14.4 % (11.5-14.5); WHITE BLOOD COUNT 11.5 X10'3 (4.5-11.0)
[2024-03-15 06:50] LABS: ALBUMIN 3.4 G/DL (3.4-5.0); ANION GAP 9 (8-16); BLOOD UREA NITROGEN 6 MG/DL (7-18); BUN/CREATININE RATIO 6.3 (10.0-20.0); CALCIUM 9.1 MG/DL (8.5-10.1); CHLORIDE 98 MMOL/L (99-107); CHOL/HDL RATIO 1.7 (0.00-4.99); CHOLESTEROL 125 MG/DL (0-200); CREATININE 0.96 MG/DL (0.60-1.10); GLUCOSE 103 MG/DL (70-104); HDL CHOLESTEROL 74 MG/DL (35-60); LDL CHOLESTEROL 40 MG/DL (50-100); LIPASE 93 U/L (16-77); POTASSIUM 3.9 MMOL/L (3.5-5.1); SODIUM 130 MMOL/L (135-145); TOTAL CARBON DIOXIDE 22.9 MMOL/L (24-32); TRIGLYCERIDES 110 MG/DL (20-135); eCRCL 92 ML/MIN; eGFR 80 ML/MIN
[2024-03-15] MEDS ORDERED: METOPROLOL TARTRATE PO SCH (08:00)
[2024-03-15] MEDS: multivitamins, therapeutics tablet PO SCH (08:18)
[2024-03-15] MEDS: atorvastatin 20mg tablet PO SCH (08:19)
[2024-03-15 09:06] LABS: ALANINE AMINOTRANSFERASE 20 U/L (12-78); ALBUMIN/GLOBULIN RATIO 0.9 (1.1-1.5); ALKALINE PHOSPHATASE 135 IU/L (46-116); ASPARTATE AMINO TRANSFERASE 14 U/L (10-37); BILIRUBIN,DIRECT 0.5 MG/DL (0-0.3); TOTAL PROTEIN 7.2 G/DL (6.4-8.2)
[2024-03-15 10:00] VITALS: BP 148/93; PULSE 116; RESP 19; TEMP 99.4; O2SAT 97
[2024-03-15] MEDS: HYDROcodone/acetaminophen 5mg/325mg tablet PO PRN (15:11)
[2024-03-15 18:00] VITALS: BP 160/97; PULSE 100; RESP 16; TEMP 98.1; O2SAT 98
[2024-03-15 19:31] VITALS: RESP 17; O2SAT 95
[2024-03-15 22:00] VITALS: BP 186/107; PULSE 102; RESP 19; TEMP 98.2; O2SAT 100
[2024-03-16 06:00] VITALS: BP 154/104; PULSE 107; RESP 16; TEMP 98.7; O2SAT 97
[2024-03-16 06:51] LABS: BASOPHILS % (AUTO) 0.6 % (0-1); EOSINOPHILS # (AUTO) 0.2 X10'3 (0-0.9); HEMATOCRIT 34.9 % (42.0-52.0); HEMOGLOBIN 11.6 g/dl (14.0-17.9); LYMPHOCYTES # (AUTO) 1.4 X10'3 (1.1-4.8); LYMPHOCYTES % (AUTO) 23.8 % (21-51); MEAN CORPUSCULAR HEMOGLOBIN 30.5 PG (27.0-31.0); MEAN CORPUSCULAR HGB CONC 33.2 g/dL (33.0-36.5); MEAN PLATELET VOLUME 6.9 FL (7.4-10.4); MONOCYTES # (AUTO) 0.5 X10'3 (0-0.9); MONOCYTES % (AUTO) 8.7 % (2-12); NEUTROPHILS # (AUTO) 3.8 X10'3 (1.8-7.7); NEUTROPHILS % (AUTO) 62.9 % (42-75); PLATELET COUNT 157 X10'3 (140-440); RED CELL DISTRIBUTION WIDTH 14.1 % (11.5-14.5)
[2024-03-16 07:12] LABS: ANION GAP 8 (8-16); BLOOD UREA NITROGEN 5 MG/DL (7-18); BUN/CREATININE RATIO 5.7 (10.0-20.0); CALCIUM 8.6 MG/DL (8.5-10.1); CHLORIDE 100 MMOL/L (99-107); CREATININE 0.87 MG/DL (0.60-1.10); GLUCOSE 98 MG/DL (70-104); LIPASE 36 U/L (16-77); POTASSIUM 3.4 MMOL/L (3.5-5.1); SODIUM 131 MMOL/L (135-145); TOTAL CARBON DIOXIDE 22.7 MMOL/L (24-32); eCRCL 102 ML/MIN; eGFR 90 ML/MIN
[2024-03-16] MEDS: potassium Cl 20 mEq SR tablet PO PRN (09:48)
[2024-03-16 10:00] VITALS: BP 141/98; PULSE 111; RESP 12; TEMP 97.7; O2SAT 99
[2024-03-16 10:01] LABS: ALANINE AMINOTRANSFERASE 18 U/L (12-78); ALBUMIN 2.9 G/DL (3.4-5.0); ALBUMIN/GLOBULIN RATIO 0.8 (1.1-1.5); ALKALINE PHOSPHATASE 111 IU/L (46-116); ASPARTATE AMINO TRANSFERASE 10 U/L (10-37); BILIRUBIN,DIRECT 0.2 MG/DL (0-0.3); BILIRUBIN,TOTAL 0.7 MG/DL (0.1-1.0); TOTAL PROTEIN 6.6 G/DL (6.4-8.2)
[2024-03-16] MEDS ORDERED: NICO-631 TD (11:24)
[2024-03-16] MEDS ORDERED: ONDA-243 PO (11:24)
[2024-03-16] MEDS ORDERED: PANT-47 PO (11:24)
[2024-03-16] MEDS ORDERED: ACET-1008 PO ×2 (11:26→11:27)
[2024-03-16] MEDS ORDERED: LORazepam 1 MG tablet PO PRN (15:50)
[2024-03-18] MEDS ORDERED: LORazepam 1 MG tablet PO PRN (15:50)
[2024-03-18] MEDS ORDERED: LORazepam 2 mg/ml vial IV PRN (15:50)
== END 2024-03-16 12:50 | disposition home or self-care (01) | DRG 439 ==
LOC: ER 21:24 → ED HOLD 03-14 01:58 → ORTHO 4S 03-14 03:35
PROVIDERS: ADMIT Internal Medicine Critical Care Medicine; ATTEND Internal Medicine
DX: K85.20 Alcohol induced acute pancreatitis without necrosis or infection (principal); E87.1 Hypo-osmolality and hyponatremia; F10.130 Alcohol abuse with withdrawal, uncomplicated; I42.6 Alcoholic cardiomyopathy; I50.30 Unspecified diastolic (congestive) heart failure; K80.20 Calculus of gallbladder without cholecystitis without obstruction; K29.80 Duodenitis without bleeding; I11.0 Hypertensive heart disease with heart failure; K21.9 Gastro-esophageal reflux disease without esophagitis; K59.00 Constipation, unspecified; J44.9 Chronic obstructive pulmonary disease, unspecified; E87.6 Hypokalemia; Z86.711 Personal history of pulmonary embolism; Z87.442 Personal history of urinary calculi
CPT/HCPCS: 36415; 71045; 74176; 76700; 80048; 80053; 80061; 80076; 81001; 82948; 83690; 83880; 84145; 84484; 85025; 85651; 87081; 93005; 96374; 96375; 96376; 97116; 97161; 97530; 99285; C1758; G0378; J0360; J1170; J2060; J2270; J2405; J3411; J3490; J7030